=== PATIENT | female | born 1945 | race Caucasian/White ===

== ENCOUNTER 2025-02-11 23:33 | Emergency (ER) | payer OTHER ==
[~2025-02-11] VITALS: Ht 172.7 cm; Wt 89.0 kg
[2025-02-11 23:49] VITALS: O2SAT 98
[2025-02-12] MEDS: ACETAMINOPHEN 500MG TABLET PO ONE (00:27)
[2025-02-12] MEDS: LIDOCAINE HCL 1% 20ML VIAL INFIL ONE (01:05)
[2025-02-12] MEDS ORDERED: BACITRACIN ZINC OINT UDPKT TOP ONE (01:45)
[2025-02-12 02:20] VITALS: BP 164/99; PULSE 88; RESP 16; TEMP 36.7; O2SAT 95
== END 2025-02-12 02:25 | disposition home or self-care (01) ==
LOC: ER 23:33
DX: S01.112A Laceration without foreign body of left eyelid and periocular area, initial encounter (principal); J44.9 Chronic obstructive pulmonary disease, unspecified; R42 Dizziness and giddiness; Z98.890 Other specified postprocedural states; W01.0XXA Fall on same level from slipping, tripping and stumbling without subsequent striking against object, initial encounter; Y93.89 Activity, other specified; Y92.89 Other specified places as the place of occurrence of the external cause; Y99.8 Other external cause status
CPT/HCPCS: 99284; 12013; 70450; 70486; J2003